=== PATIENT | female | born 2000 | race African-American/Black ===

== ENCOUNTER 2018-09-05 14:07 | Emergency (ER) | payer OTHER, MEDICAID ==
[~2018-09-05] VITALS: Ht 170.2 cm; Wt 115.5 kg
[~2018-09-05 14:07] MED LIST: MIRALAX510G PO; NO HOME MEDICATIONS
[2018-09-05 14:19] VITALS: TEMP 100.2
[2018-09-05] MEDS ORDERED: DOXYCYCLINE HY100 MG PO (14:42)
[2018-09-05 15:08] VITALS: BP 128/75; PULSE 97
== END 2018-09-05 15:09 | disposition home or self-care (01) ==
LOC: COL.ER 14:07
DX: L03.116 Cellulitis of left lower limb (principal); E66.9 Obesity, unspecified; Z68.41 Body mass index [BMI] 40.0-44.9, adult

== ENCOUNTER 2018-09-07 08:50 | Emergency (ER) | payer MEDICAID ==
[~2018-09-07] VITALS: Ht 170.2 cm; Wt 113.6 kg
[~2018-09-07 08:50] MED LIST changes: +DOXYCYCLINE HY100 MG PO
[2018-09-07 09:08] VITALS: BP 140/92; TEMP 97.4
[2018-09-07 09:51] VITALS: PULSE 86
== END 2018-09-07 09:55 | disposition home or self-care (01) ==
LOC: COL.ER 08:50
DX: L02.91 Cutaneous abscess, unspecified (principal)

== ENCOUNTER 2018-09-11 16:32 | Emergency (ER) | payer MEDICAID ==
[~2018-09-11] VITALS: Ht 170.2 cm; Wt 113.6 kg
[2018-09-11 16:37] VITALS: BP 139/63; PULSE 84; TEMP 97.4
[2018-09-11] MEDS ORDERED: HIBICLENS4% TP (16:53)
[2018-09-11] MEDS ORDERED: BEN TP (16:53)
[2018-09-11] MEDS ORDERED: CLINDAMYCIN TP (16:53)
== END 2018-09-11 17:11 | disposition home or self-care (01) ==
LOC: COL.ER 16:32
DX: L70.9 Acne, unspecified (principal)

== ENCOUNTER 2019-03-02 12:37 | Emergency (ER) | payer MEDICAID ==
[~2019-03-02] VITALS: Ht 170.2 cm; Wt 125.0 kg
[~2019-03-02 12:37] MED LIST changes: +BEN TP; +CLINDAMYCIN TP; +HIBICLENS4% TP
[2019-03-02 12:46] VITALS: BP 147/73
[2019-03-02] MEDS ORDERED: FLAGYL500 MG PO (13:42)
[2019-03-02] MEDS ORDERED: DIFLUCAN150 MG PO (13:42)
[2019-03-02 13:44] LABS: HIV 1/2 Antibodies Non-Reactive; HIV-1p24 Antigen Non-Reactive
[2019-03-02] MEDS ORDERED: VALTREX1 GM PO (13:48)
[2019-03-02 13:54] VITALS: PULSE 81; TEMP 98.4
== END 2019-03-02 13:54 | disposition home or self-care (01) ==
LOC: COL.ER 12:37
PROVIDERS: Emergency Medicine
DX: Z11.3 Encounter for screening for infections with a predominantly sexual mode of transmission (principal); N76.0 Acute vaginitis; B96.89 Other specified bacterial agents as the cause of diseases classified elsewhere
CPT/HCPCS: J0696

== ENCOUNTER 2020-05-20 20:54 | Emergency (ER) | payer SELFPAY ==
[~2020-05-20] VITALS: Ht 172.7 cm; Wt 159.1 kg
[~2020-05-20 20:54] MED LIST changes: +DIFLUCAN150 MG PO; +FLAGYL500 MG PO; +VALTREX1 GM PO
[2020-05-20 21:20] VITALS: BP 155/98; TEMP 99.1
[2020-05-20 21:44] LABS: COLLECTION METHOD CLEAN CATCH
[2020-05-20 21:51] LABS: MUCOUS Present /lpf; PH 6 (5-8); URINE APPEARANCE Cloudy; URINE BACTERIA None Seen /hpf; URINE BILIRUBIN Negative (NEGATIVE); URINE BLOOD Negative (NEGATIVE); URINE COLOR Yellow; URINE GLUCOSE Negative (NEGATIVE); URINE KETONE Negative (NEGATIVE); URINE LEUKOCYTE ESTERASE 2+ (NEGATIVE); URINE NITRATE Negative (NEGATIVE); URINE PROTEIN(semi-quant) Negative (NEGATIVE); URINE UROBILINOGEN Negative (NEGATIVE)
[2020-05-20 23:15] VITALS: PULSE 84
== END 2020-05-20 23:28 | disposition home or self-care (01) ==
LOC: COL.ER 20:54
PROVIDERS: Physician Assistant
DX: Z20.2 Contact with and (suspected) exposure to infections with a predominantly sexual mode of transmission (principal)
CPT/HCPCS: J0696

== ENCOUNTER 2020-08-19 12:38 | Emergency (ER) | payer SELFPAY ==
[~2020-08-19] VITALS: Ht 170.2 cm; Wt 159.1 kg
[2020-08-19 12:44] VITALS: TEMP 98.1
[2020-08-19 14:15] VITALS: BP 140/83; PULSE 86
== END 2020-08-19 14:14 | disposition home or self-care (01) ==
LOC: COL.ER 12:38
DX: S93.402A Sprain of unspecified ligament of left ankle, initial encounter (principal); I10 Essential (primary) hypertension; F17.290 Nicotine dependence, other tobacco product, uncomplicated; W19.XXXA Unspecified fall, initial encounter; Y92.009 Unspecified place in unspecified non-institutional (private) residence as the place of occurrence of the external cause

== ENCOUNTER 2022-07-04 14:51 | Observation (INO) | payer SELFPAY ==
[~2022-07-04] VITALS: Ht 170.2 cm; Wt 166.5 kg
[2022-07-04 15:26] LABS: BASO % 0.4 % (0.0-2.0); EOS # 0.4 K/mm3 (0.0-0.7); EOS % 3.3 % (0.0-4.0); GRAN # 7.6 K/mm3 (1.4-6.5); GRAN % 69.3 % (42.2-75.2); HEMATOCRIT 42.8 % (37.0-47.0); HEMOGLOBIN 14.1 g/dl (12.5-16.0); LYMPH # 2.3 K/mm3 (1.2-3.4); MEAN CELL VOLUME 82 fl (80.0-100.0); MEAN CORPUSCULAR HEMOGLOBIN 27 pg (27-31); MEAN CORPUSCULAR HGB CONC 33 g/dl (33.0-37.0); MEAN PLATELET VOLUME 8.9 fl (7.4-10.4); MONO # 0.6 K/mm3 (0.1-0.6); MONO % 5.6 % (1.7-9.3); PLATELET COUNT 357 K/mm3 (130-400); RED BLOOD COUNT 5.24 M/mm3 (4.10-5.30); REDCELL DISTRIBUTION WIDTH-CV 15.2 % (11.5-14.5)
[2022-07-04 15:41] LABS: ALBUMIN 3.6 gm/dL (3.5-5.0); BILIRUBIN,TOTAL 5.8 mg/dL (0.2-1.2); C-REACTIVE PROTEIN 3.7 mg/dL (0.00-0.50); CALCIUM 9.7 mg/dL (8.4-10.2); CREATININE, serum 0.86 mg/dL (0.57-1.11); POTASSIUM 4.1 mmol/L (3.5-4.5); TOTAL PROTEIN 7.6 gm/dL (6.2-8.1)
[2022-07-04 15:48] LABS: COLLECTION METHOD CLEAN CATCH
[2022-07-04 15:53] LABS: URINE APPEARANCE Clear (CLEAR/HAZY); URINE COLOR OTHER (YELLOW); URINE PROTEIN(semi-quant) TRACE (NEGATIVE)
[2022-07-04 15:54] LABS: MUCOUS Present (NOT PRESENT); SQUAMOUS EPITHELIAL 0-2 /hpf (0-10); URINE BACTERIA None Seen /hpf (NONE SEEN); URINE BLOOD 3+ (NEGATIVE); URINE GLUCOSE TRACE (NEGATIVE); URINE KETONE TRACE (NEGATIVE); URINE NITRATE Negative (NEGATIVE); URINE UROBILINOGEN 0.2 E.U/dL (0.2-1.0)
[2022-07-04 18:47] VITALS: BP 148/84; PULSE 68; TEMP 98
[2022-07-04 19:52] VITALS: BP 135/81; PULSE 83; TEMP 97.6
[2022-07-04 23:30] VITALS: BP 155/67; PULSE 71; TEMP 98.6
[2022-07-05] VITALS (9 sets, daily range): BP systolic 125–169; BP diastolic 61–98; PULSE 56–84; TEMP 98.2–98.6
--- NOTE | 2022-07-05 05:40 | NUR ---
NPO since midnight, c/o RUQ pain 06/06, morphine given x2. IVF infusing per piv @125cc/hr.
[2022-07-05 06:58] LABS: BASO % 0.4 % (0.0-2.0); EOS # 0.5 K/mm3 (0.0-0.7); EOS % 4.5 % (0.0-4.0); GRAN # 6.2 K/mm3 (1.4-6.5); GRAN % 60.4 % (42.2-75.2); HEMATOCRIT 38.4 % (37.0-47.0); HEMOGLOBIN 12.8 g/dl (12.5-16.0); LYMPH # 2.9 K/mm3 (1.2-3.4); LYMPH % 28.9 % (20.0-51.0); MEAN CELL VOLUME 81 fl (80.0-100.0); MEAN CORPUSCULAR HEMOGLOBIN 27 pg (27-31); MEAN CORPUSCULAR HGB CONC 33 g/dl (33.0-37.0); MEAN PLATELET VOLUME 9.7 fl (7.4-10.4); MONO # 0.6 K/mm3 (0.1-0.6); MONO % 5.5 % (1.7-9.3); PLATELET COUNT 321 K/mm3 (130-400); RED BLOOD COUNT 4.74 M/mm3 (4.10-5.30); REDCELL DISTRIBUTION WIDTH-CV 15.1 % (11.5-14.5)
[2022-07-05 06:59] LABS: ALBUMIN 3.1 gm/dL (3.5-5.0); BILIRUBIN,TOTAL 5.5 mg/dL (0.2-1.2); CALCIUM 9.3 mg/dL (8.4-10.2); CREATININE, serum 0.8 mg/dL (0.57-1.11); POTASSIUM 3.9 mmol/L (3.5-4.5); TOTAL PROTEIN 6.6 gm/dL (6.2-8.1)
--- NOTE | 2022-07-05 10:08 | NUR ---
0830 Pt up and walking back to bed. Shift assessment completed. RAFAEL Arriaga administered IVF NS 125mL/hr in L hand; intact. No edema, redness, or infiltration. Pt complains of abdominal pain. Pt educated on ERCP procdure with printed handout. Call light within reach.
--- NOTE | 2022-07-05 10:18 | NUR ---
IV medications given as ordered. Physical assessment completed, charted by KALLI Rivero. Charting reviewed.
--- NOTE | 2022-07-05 10:35 | NUR ---
Initial visit; Patient thanked Coffee Weigher for looking in on her. She stated that she is a little uneasy about them going to do a scope to see what is causing her health issues. Coffee Weigher listened and will keep Galileo in her prayers and will follow up while she is a patient.
--- NOTE | 2022-07-05 11:14 | NUR ---
Licensed Occupational Therapist met with patient to discuss discharge planning. Patient lives in [place] with her boyfriend, Herrera. Patient does not have primary care established and wants to wait until she gets her insurance back before finding a PCP. Patient advised she aged out of the foster care system and should qualify for Medicaid. Patient advised she had Medicaid at one point, but when she was incarcerated, it was dropped. Patient would like assistance with reapplying. Patient is independent with ADLS and does not use any DME. Patient does not have [employer]. Patient is not , has no children, and is not in contact with her parents. Patient states her grandfather, Reynaldo (ph#[phone]) is the best contact for her. Patient plans to return home at time of discharge. SW contacted [employer] Counselor and requested she help patient reapply for Medicaid. Discharge Plan: Home
--- NOTE | 2022-07-05 18:00 | NUR ---
Patient back from ERCP. Post op vitals completed. VSS. Patient A&O. Patient voiced her concerns to this RN about not being able to eat [employer], due to her clear liquid diet. Patient states that she is very hungry and that if she is not able to eat what she wants, she will leave AMA. Patient educated on the importance of the diet, and reasoning behind it. Dr. Guerrier updated on patient situation. As of the end of this shift, patient has agreed to stay in hospital and follow diet. Will be NPO for iliana tmrw afternoon.
--- NOTE | 2022-07-05 19:00 | NUR ---
THE PATIENT CALLED FOR PAIN MEDICATIONS. GAVE MORPHINE PER MAR. PATIENT STATES PAIN IS A 9/10. ASSESSMENT COMPLETED.
[2022-07-06] VITALS (9 sets, daily range): BP systolic 123–175; BP diastolic 57–96; PULSE 64–92; TEMP 97.5–98.2
[2022-07-06] MEDS ORDERED: TYLENOL 500MG500 MG PO (14:24)
[2022-07-06] MEDS ORDERED: ROXICODONE 55 MG/TAB PO (14:26)
--- NOTE | 2022-07-06 19:00 | NUR ---
Patient has had an ok day. Scheduled medications given. Shift assessment preformed. Patient had choley procedure. Post op vitals in progress, patient hypertensive, but stable. Remainder of VSS. Patient A&O. Lap sites dressed with bandaide, which are CDI. Once dose of zofran for post op nausea. Scheduled tylenol given. Patient's diet advancing without N/V. Patient denies any further pain, discomfort, or further needs at this time. Report given to oncoming nurse.
--- NOTE | 2022-07-06 19:50 | NUR ---
PATIENT LAYING IN BED WITH FRIEND AT BEDSIDE. PATIENT REPORTS SHE IS ABLE TO KEEP FOOD DOWN AND IS READY TO DISCHARGE. THIS NURSE PROVIDED EDUCATION SHE WOULD NEED TO EAT HER EVENING MEAL WITH NO ISSUES BEFORE DISCHARGE. PATIENT STATED UNDERSTANDING. PATIENT DENIES PAIN, NEEDS OR CONCERNS. PATIENT HAS CALL LIGHT WITHIN REACH AND STATES SHE WILL CALL WITH ANY ISSUES.
--- NOTE | 2022-07-06 22:26 | NUR ---
1949 - Patient has completed 100% of dinner. Patient denies nausea or pain. Patient states she is ready to discharge home. This nurse states she will return with discharge paperwork as ordered. This nurse exits the patient room to obtain discharge material. 1954 - This nurse enters patient room for education and discharge paperwork. Patient states understanding on all education and signs paperwork. This nurse removes patient IV at this time per orders. Discharge vitals obtained at this time and are within normal limits. 2007 - Patient is assisted to wheel chair to be taken downstairs for discharge. Patient has all belongings and states the chargers left in the room belong to the hospital. Patient is wheeled downstairs by PCT, [place] at this time with patient friend at her side. Patient is encouraged by this nurse to reach out with any questions she may have. Patient states understanding and appreciation for care received.
== END 2022-07-06 20:08 | disposition home or self-care (01) ==
LOC: COL.ER 14:51 → MEDICAL 17:08
PROVIDERS: Emergency Medicine; ADMIT Surgery
DX: K80.64 Calculus of gallbladder and bile duct with chronic cholecystitis without obstruction (principal); K83.8 Other specified diseases of biliary tract; R17 Unspecified jaundice; K66.0 Peritoneal adhesions (postprocedural) (postinfection)
CPT/HCPCS: C1769; G0378; J0360; J0694; J1885; J1956; J2270; J2405; J2550; J2704; J3010; J7030; Q9967

== ENCOUNTER 2022-07-19 16:57 | Emergency (ER) | payer SELFPAY ==
[~2022-07-19] VITALS: Ht 170.2 cm; Wt 163.6 kg
[~2022-07-19 16:57] MED LIST changes: +ROXICODONE 55 MG/TAB PO; +TYLENOL 500MG500 MG PO
[2022-07-19 17:13] VITALS: BP 164/109; TEMP 98.7
[2022-07-19 17:39] VITALS: PULSE 89
== END 2022-07-19 17:39 | disposition home or self-care (01) ==
LOC: COL.ER 16:57
DX: Z20.2 Contact with and (suspected) exposure to infections with a predominantly sexual mode of transmission (principal); Z91.040 Latex allergy status; Z28.310 Unvaccinated for COVID-19

== ENCOUNTER 2022-12-10 13:25 | Emergency (ER) | payer SELFPAY ==
[~2022-12-10] VITALS: Ht 170.2 cm; Wt 170.5 kg
[2022-12-10 13:32] VITALS: BP 160/109; TEMP 98.6
[2022-12-10 14:09] LABS: STREP SCREEN NEGATIVE
[2022-12-10 14:39] VITALS: PULSE 100
== END 2022-12-10 14:40 | disposition home or self-care (01) ==
LOC: COL.ER 13:25
PROVIDERS: Emergency Medicine
DX: J06.9 Acute upper respiratory infection, unspecified (principal); Z20.822 Contact with and (suspected) exposure to COVID-19; Z28.310 Unvaccinated for COVID-19
CPT/HCPCS: J8540